=== PATIENT | male | born 1940 | race Caucasian/White ===

== ENCOUNTER → 2017-07-28 | Outpatient (CLI) | payer MEDICARE, OTHER ==
[2017-07-28 09:34] LABS: BASO # 0.1 (0.0-0.2); BASO % 1.1 % (0.0-2.0); EOS # 0.7 (0.0-0.7); EOS % 8.1 % (0-4.0); GRAN # 4.9 (1.4-6.5); GRAN % 57.9 % (42.2-75.2); HEMATOCRIT 40.4 % (42.0-52.0); HEMOGLOBIN 14.7 g/dl (13.5-18.0); LYMPH # 1.8 (1.2-3.4); LYMPH % 20.6 % (20.0-51.0); MEAN CELL VOLUME 95 fl (80.0-100.0); MEAN CORPUSCULAR HEMOGLOBIN 35 pg (27.0-31.0); MEAN CORPUSCULAR HGB CONC 36 g/dl (33.0-37.0); MEAN PLATELET VOLUME 9.1 fl (7.4-10.4); MONO % 11.6 % (1.7-9.3); PLATELET COUNT 351 K/mm3 (130-400); RED BLOOD COUNT 4.25 M/mm3 (4.20-5.60); WHITE BLOOD COUNT 8.5 K/mm3 (4.8-10.8)
[2017-07-28 09:43] LABS: ADJUSTED CALCIUM 9.2 mg/dL (8.4-10.2); ALBUMIN 5.4 gm/dL (3.5-5.0); BILIRUBIN,TOTAL 0.6 mg/dL (0.0-1.0); CALCIUM 10.3 mg/dL (8.4-10.2); CREATININE, serum 0.88 mg/dL (0.66-1.25); POTASSIUM 3.7 mmol/L (3.4-5.0)
== END ==
LOC: COL.LAB 09:06 → ZCOL.LAB 09:06
PROVIDERS: Neurological Surgery
DX: Z01.818 Encounter for other preprocedural examination (principal)

== ENCOUNTER → 2022-02-05 | Outpatient (CLI) | payer MEDICARE | LOC: MHCPAIN 15:30 | DX: M54.50 Low back pain, unspecified (principal); M40.36 Flatback syndrome, lumbar region; M96.1 Postlaminectomy syndrome, not elsewhere classified; M19.011 Primary osteoarthritis, right shoulder | CPT/HCPCS: G0463 ==

== ENCOUNTER 2022-02-17 10:00 | Outpatient (RCR) | payer MEDICARE, OTHER | END 2022-02-19 | disposition still patient (30) | LOC: WSPT | DX: M96.1 Postlaminectomy syndrome, not elsewhere classified (principal) ==

== ENCOUNTER 2022-03-06 10:30 | Outpatient (RCR) | payer MEDICARE, OTHER | END 2022-03-22 | disposition home or self-care (01) | LOC: WSC | DX: M96.1 Postlaminectomy syndrome, not elsewhere classified (principal) ==

== ENCOUNTER → 2022-03-19 | Outpatient (CLI) | payer MEDICARE, OTHER | LOC: MHCPAIN 11:32 | DX: M54.50 Low back pain, unspecified (principal); M96.1 Postlaminectomy syndrome, not elsewhere classified; M41.80 Other forms of scoliosis, site unspecified; M19.012 Primary osteoarthritis, left shoulder | CPT/HCPCS: G0463 ==

== ENCOUNTER → 2024-06-13 | Outpatient (CLI) | payer MEDICARE | LOC: COL.VAS 09:59 | DX: I51.7 Cardiomegaly (principal); I35.1 Nonrheumatic aortic (valve) insufficiency ==